=== PATIENT | female | born 1960 | race Caucasian/White ===

== ENCOUNTER 2018-06-26 08:47 | Emergency (ER) | payer OTHER ==
[~2018-06-26] VITALS: Ht 157.5 cm; Wt 55.8 kg
[2018-06-26] MEDS ORDERED: POVIDONE IODINE 10% 120 ML BTL EXT ONE (09:45)
[2018-06-26] MEDS ORDERED: DIPHTH/TETANUS/ACEL. PERTUSSIS 0.5 ML SYR IM ONE (09:45)
[2018-06-26] MEDS ORDERED: LIDOCAINE 1% W/EPINEPHRINE 20 ML VIAL INJ ONE (09:45)
== END 2018-06-26 09:50 | disposition home or self-care (01) ==
LOC: FSED 08:47
DX: L02.415 Cutaneous abscess of right lower limb (principal); L03.115 Cellulitis of right lower limb
CPT/HCPCS: 10061; 87071; 87205; 99284